=== PATIENT | female | born 1960 | race Caucasian/White ===

== ENCOUNTER 2016-06-12 20:09 | Emergency (ER) | payer MEDICARE, MEDICAID ==
[~2016-06-12 20:09] MED LIST: ACETAMIN-CODE12.5 ML PO; ALBUTEROL1.25 MG/3 IH; AMITRIPTYLINE H25 M1 PO; ATIVAN PO; CELEBREX200 M1 PO; CITALOPRAM HBR20 M1 PO; COUMADIN10 MG; COUMADIN2.5 MG; CYCLOBENZAPRINE5 M1 PO; DIABETES PILL; FENOFIBRATE PO; GABAPENTIN300 M1 PO; HYDROCODON-ACE1 EA17 PO; HYDROCODONE/A1 UDTA; IBUPROFEN600 M1 PO; IBUPROFEN800 M1 PO; KEFLEX500 M4 PO; LEXAPRO10 M2 PO; LEXAPRO20 M2 PO; LIPITOR40 M1 PO; LIPOFEN50 MG PO; MEDROL4 M2 PO; METFORMIN PO; MOBIC7.5 M2 PO; NEURONTIN300 M1 PO; NORCO 5-325 TA1 EACH PO; NYSTATIN100000 UNI SSW; OS-CAL 500+D31 EAC1 PO; PREDNISONE20 M1 PO; PREDNISONE50 M1 PO; PRILOSEC OTC20 M1 PO; REMERON30 M1 PO; REMERON30 MG; REQUIP5 M1 PO; TESSALON PERLE100 M1 PO; TRICOR; TRILEPTAL300 MG; VITAMIN D PO; ZANTAC 7575 MG; ZONEGRAN100 M2 PO; [UNRECOGNIZED DRUG - REMARK] PO
[2016-06-12] MEDS ORDERED: LYRICA75 MG/CAP PO (20:46)
[2016-06-12] MEDS ORDERED: FLONASE ALLERG9.9 ML (20:59)
[2016-06-12] MEDS ORDERED: NEOMYCIN-POLYMY10 M5 LEFT EAR (20:59)
[2016-10-01] MEDS ORDERED: BRINTELLIX10 M1 PO (23:25)
[2016-10-01] MEDS ORDERED: ULTRAM50 M1 PO (23:26)
[2016-10-01] MEDS ORDERED: VITAMIN D31000 UNI3 PO (23:26)
[2016-10-02] MEDS ORDERED: TYLENOL EXTRA500 M1 PO (00:17)
[2016-10-02] MEDS ORDERED: ALBUTEROL0.63 MG/1 INH (00:31)
[2016-10-02] MEDS ORDERED: CELEXA20 M2 PO (14:48)
[2016-10-02] MEDS ORDERED: CYCLOBENZAPRINE5 M1 PO (16:45)
[2016-10-02] MEDS ORDERED: IBUPROFEN800 M1 PO (16:45)
== END 2016-06-12 21:10 ==
LOC: EDMED 20:09
DX: H60.92 Unspecified otitis externa, left ear (principal); J06.9 Acute upper respiratory infection, unspecified; Z86.718 Personal history of other venous thrombosis and embolism; Z87.891 Personal history of nicotine dependence; Z79.899 Other long term (current) drug therapy

== ENCOUNTER 2016-08-06 20:47 | Emergency (ER) | payer MEDICARE, MEDICAID ==
[~2016-08-06 20:47] MED LIST changes: +FLONASE ALLERG9.9 ML; +LYRICA75 MG/CAP PO; +NEOMYCIN-POLYMY10 M5 LEFT EAR
[2016-08-06] MEDS ORDERED: NORCO 5/3251 TAB PO (22:20)
[2016-10-01] MEDS ORDERED: BRINTELLIX10 M1 PO (23:25)
[2016-10-01] MEDS ORDERED: ULTRAM50 M1 PO (23:26)
[2016-10-01] MEDS ORDERED: VITAMIN D31000 UNI3 PO (23:26)
[2016-10-02] MEDS ORDERED: TYLENOL EXTRA500 M1 PO (00:17)
[2016-10-02] MEDS ORDERED: ALBUTEROL0.63 MG/1 INH (00:31)
[2016-10-02] MEDS ORDERED: CELEXA20 M2 PO (14:48)
[2016-10-02] MEDS ORDERED: CYCLOBENZAPRINE5 M1 PO (16:45)
[2016-10-02] MEDS ORDERED: IBUPROFEN800 M1 PO (16:45)
== END 2016-08-06 22:27 ==
LOC: EDMED 20:47
DX: S80.12XA Contusion of left lower leg, initial encounter (principal); E78.5 Hyperlipidemia, unspecified; Z87.891 Personal history of nicotine dependence; W19.XXXA Unspecified fall, initial encounter; Y92.481 Parking lot as the place of occurrence of the external cause
CPT/HCPCS: J1170